=== PATIENT | male | born 1960 | race Caucasian/White ===

== ENCOUNTER → 2019-02-02 | Outpatient (CLI) | payer OTHER ==
[~2019-02-02] MED LIST: COLACE100 MG PO; COUMADIN7.5 MG PO; EFFEXOR XR37.5 MG PO; ENOXAPARIN100 MG/11 SUBQ; FISH OIL 1,001000 M2 PO; HYDROCODONE-AP1 EAC6 PO; IBUPROFEN 200200 M1 PO; MILK OF MA2400 MG/10 PO; NOHOMEMEDICATIONS; PHENERGAN 25 MG25 MG PO; TYLENOL325 MG PO; XANAX 0.25 MG0.25 MG PO; XARELTO20 MG PO
== END ==
LOC: CAT 13:57
DX: Z13.6 Encounter for screening for cardiovascular disorders (principal); E78.00 Pure hypercholesterolemia, unspecified; I25.10 Atherosclerotic heart disease of native coronary artery without angina pectoris

== ENCOUNTER → 2020-11-04 | Outpatient (CLI) | payer BC | LOC: SJCVCIMAG 12:00 | PROVIDERS: ATTEND Family Medicine | DX: I25.10 Atherosclerotic heart disease of native coronary artery without angina pectoris (principal) ==